=== PATIENT | female | born 1970 | race Caucasian/White ===

== ENCOUNTER 2018-10-20 08:27 | Emergency (ER) | payer OTHER ==
[~2018-10-20 08:27] MED LIST: ALPR-1 PO; ALPR-429 PO; AMLO2.5T75 PO; ESTR-63 TD; IBU800 PO; IBUP-2704 PO; IBUP-56 PO; LOR5 PO; LOSA-51 PO; LOSA25TA57 PO; LOSA50TA80 PO; NITR-1 PO; OLME1TAB54 PO; OMEP10CA40; OMEP40CA48 PO; PER PO; RAN150 PO; SULF-198 PO; VALA100062 PO; VALA500T66 PO; [UNRECOGNIZED DRUG - OTHER] PO
--- NOTE | 2018-10-20 08:45 | ER Report ---
History and Physical Time Seen By MD: 08:45 Hx. of Stated Complaint: PT REPORTS HIGH BP AT HOME AND PAIN IN L SIDE HEAD. HPI/ROS CHIEF COMPLAINT: elevated blood pressure, headache HISTORY OF PRESENT ILLNESS: This is a 48 year old female. She is having elevation of her blood pressure this morning. She took her Losartan 50mg and HCTZ 12.5mg, but blood pressure still very high. Having a headche this morning as well. Left sided headache. She had had elevated blood pressure with headache in the past, but this is very different. Have left sided facial numbness. No facial weakness and no sharp pains in the face. No vision changes or watering eyes. No ringing in ears or loss of hearing. Headache is a dull pressure pain on whole left side of head (frontal, samaritan, and parietal) areas. No trouble swallowing or slurred speech. She has had some numbness in her upper left arm as well, that just went away. Had some tingling in left fingers, all five, earlier today, but gone now. No other numbness or paresthesias noted. No weakness in arms or legs. She is under a little more stress than usual. Just left a job that she has been at for 10 years and starting a new one, so feeling both excited and apprehensive at the same time. Did take a Xanax 0.25mg this morning. Feels congested on the left side of face with these symptoms as well, so did take some over the counter cough medicine to help this. She is unsure exactly what was in the medicine. Denies any balance issues or dizziness. She did have a glass of wine last night. REVIEW OF SYSTEMS: Constitutional: No fever or chills. Eyes: No discharge. ENT: No sore throat. Cardiovascular: No chest pain. No palpitations. Respiratory: No cough. No shortness of breath. Gastrointestinal: No abdominal pain. No nausea or vomiting. No change in bowel movements. Genitourinary: No dysuria. No frequency Musculoskeletal: No back pain. No extremity pain. Skin: No rashes. Neurological: As above. Allergies: Coded Allergies: blue dye (Verified Allergy, Severe, RESTLESSNESS, 05/08/16) flush/ night sweats yellow dye (Verified Allergy, Severe, RESTLESSNESS, 05/08/16) flush/night sweats metoprolol (Verified Allergy, Mild, 05/08/16) Home Meds Active Scripts Losartan Potassium (LOSARTAN POTASSIUM) 25 Mg Tablet, 25 MG PO QHS, #30 TAB 0 Refills Prov:DILLON DE LA O MD 10/20/18 Reported Medications Losartan/Hydrochlorothiazide (LOSARTAN-HCTZ 50-12.5 MG TAB) 1 Each Tablet, 1 EACH PO QDAY 10/20/18 Estradiol (ESTRADIOL 0.1 MG) 1 Each Patch.tdwk, 1 EACH TD Q7D, PATCH.WK 10/20/18 Alprazolam (XANAX) 0.5 Mg Tablet, 1 TAB PO TID, TAB 10/20/18 Valacyclovir Hcl (VALTREX) 500 Mg Tablet, 500 MG PO PRN 05/08/16 Omeprazole (OMEPRAZOLE) 40 Mg Capsule.dr, 40 MG PO HS TAKE ONE TABLET BY MOUTH ONCE A DAY 07/08/13 Discontinued Reported Medications Alprazolam (XANAX) 0.5 Mg Tablet, 1 TAB PO, TAB 05/08/16 Losartan/Hydrochlorothiazide (LOSARTAN-HCTZ 50-12.5 MG TAB) 1 Each Tablet, 1 EACH PO QDAY 05/08/16 Estradiol/Levonorgestrel (CLIMARA PRO PATCH) 1 Each Patch.tdwk, 1 EACH TD QDAY apply to skin weekly 07/11/13 Losartan Potassium (LOSARTAN POTASSIUM) 25 Mg Tablet, 25 MG PO HS 07/08/13 Past Medical/Surgical History Hypertension, GERD, anxiety. Surgeries include hysterectomy, tummy tuck Reviewed Nurses Notes: Yes Hx Smoking: No Hx Alcohol Use: Yes (COUPLE GLASSES OF WINE A NIGHT ) Constitutional Vital Sign - Last 24 Hours 10/20/18 10/20/18 10/20/18 10/20/18 08:30 08:30 08:36 08:42 Temp 97.8 Pulse 73 74 Resp 18 B/P (MAP) 181/122 (141) 181/122 158/110 (126) O2 Delivery Room Air 10/20/18 10/20/18 10/20/18 10/20/18 08:57 09:00 09:12 09:27 Pulse 72 71 72 Resp 16 B/P (MAP) 135/95 (108) Pulse Ox 92 10/20/18 10/20/18 10/20/18 10/20/18 09:32 09:47 10:02 10:17 Pulse 71 66 ? Resp 14 15 Pulse Ox 91 89 10/20/18 10/20/18 10/20/18 10/20/18 10:30 10:32 10:47 11:00 Pulse ? B/P (MAP) ???/??? (1665) 139/82 (101) 10/20/18 10/20/18 10/20/18 10/20/18 11:02 11:17 11:30 11:35 Pulse 70 75 78 B/P (MAP) 135/108 (117) Pulse Ox 93 94 96 10/20/18 10/20/18 10/20/18 12:00 12:05 12:06 Pulse ??? B/P (MAP) ???/??? (4705) 136/100 (112) 146/99 (115) Physical Exam General Appearance: The patient is alert. No acute distress, but a little anxious. Non-toxic in appearance. Eyes: Pupils are equal, round. Reactive to light. No pallor, injection or icterus. Extraocular movements are intact. No nystagmus. ENT: Mucous membranes are moist. Normal oral mucosa. Posterior oropharynx is normal. Normal nasal mucosa. Normal tympanic membranes and canals. Neck: Supple and non tender. No lymphadenopathy. Respiratory: Lungs are clear to auscultation. Cardiovascular: Regular rate and rhythm. No murmurs, gallops or rubs. Normal capillary refill. No edema. No carotid bruits. Normal peripheral pulses. Gastrointestinal: Abdomen is soft and non tender. Nondistended. Normal active bowel sounds. No costovertebral angle tenderness with percussion. Neurological: Alert and oriented x3. Cranial nerve exam with eye exam as noted above. [place] tongue and symmetric palate elevation. Normal motor function in the face. Has decreased sensation in the maxillary distribution of the trigeminal nerve, but normal forehead and mandibular. Normal shoulder shrug. Normal strength and sensation in the arms and legs. Normal reflexes. Normal coordination and gait. Skin: Warm and dry. No rashes. Musculoskeletal: Extremities are nontender. Full range of motion. DIFFERENTIAL DIAGNOSIS: After history and physical exam, differential diagnosis was considered for patient with elevated blood pressure, headache, and facial and left upper extremity numbness this morning, still with facial numbness, but arm numbness resolved. Consider blood pressure as primary cause, versus other neurological problem like bleeding, neurodegenerative disease, craniofacial pain syndrome. Medical Decision Making Data Points Result Diagram: 10/20/18 0837 10/20/18 0837 Laboratory Hematology Test 10/20/18 08:34 10/20/18 08:37 Urine Color Colorless Urine Clarity Clear Urine pH 6.0 pH (4.8-9.5) Urine Specific [place] 1.004 Urine Protein Negative mg/dL (NEGATIVE) Urine Glucose (UA) Negative mg/dL (NEGATIVE) Urine Ketones Negative mg/dL (NEGATIVE) Urine Blood Negative (NEGATIVE) Urine Nitrite Negative (NEGATIVE) Urine Bilirubin Negative (NEGATIVE) Urine Urobilinogen Negative mg/dL (0.2-1.9) Urine Leukocyte Esterase Negative (NEGATIVE) Urine RBC <1 /HPF (0-2/HPF) Urine WBC 1 /HPF (0-5/HPF) Urine Squamous Epithelial Cells Moderate /LPF (</=FEW) Urine Bacteria Few /HPF (NONE-FEW) Urine Mucus None /HPF (NONE-FEW) Red Blood Count 4.79 M/uL (4.17-5.56) Mean Corpuscular Volume 93.3 fL (80.0-96.0) Mean Corpuscular Hemoglobin 31.8 pg (26.0-33.0) Mean Corpuscular Hemoglobin Concent 34.0 g/dL (32.0-36.0) Red Cell Distribution Width 13.0 % (11.5-14.5) Mean Platelet Volume 8.1 fL (7.2-11.1) Neutrophils (%) (Auto) 72.8 % (39.4-72.5) Lymphocytes (%) (Auto) 22.6 % (17.6-49.6) Monocytes (%) (Auto) 3.5 % (4.1-12.4) Eosinophils (%) (Auto) 0.7 % (0.4-6.7) Basophils (%) (Auto) 0.4 % (0.3-1.4) Nucleated RBC Relative Count (auto) 0.1 /100WBC Neutrophils # (Auto) 6.3 K/uL (2.0-7.4) Lymphocytes # (Auto) 1.9 K/uL (1.3-3.6) Monocytes # (Auto) 0.3 K/uL (0.3-1.0) Eosinophils # (Auto) 0.1 K/uL (0.0-0.5) Basophils # (Auto) 0.0 K/uL (0.0-0.1) Nucleated RBC Absolute Count (auto) 0.01 K/uL Erythrocyte Sedimentation Rate 1 mm/HOUR (0-20) Prothrombin Time 12.6 seconds (12.0-14.4) Prothromb Time International Ratio 0.95 Activated Partial Thromboplast Time 29 seconds (23-35) Sodium Level 132 mmol/L (137-145) Potassium Level 3.7 mmol/L (3.5-5.0) Chloride Level 98 mmol/L (98-107) Carbon Dioxide Level 25 mmol/L (22-31) Blood Urea Nitrogen 13 mg/dl (7-18) Creatinine 0.60 mg/dl (0.52-1.04) Glomerular Filtration Rate Calc > 60.0 Random Glucose 105 mg/dl (75-110) Calcium Level 8.8 mg/dl (8.4-10.2) Total Bilirubin 0.6 mg/dl (0.2-1.3) Aspartate Amino Transf (AST/SGOT) 29 U/L (0-35) Alanine Aminotransferase (ALT/SGPT) 24 U/L (0-56) Alkaline Phosphatase 70 U/L (0-126) Total Protein 7.9 g/dl (6.3-8.2) Albumin 4.9 g/dl (3.5-5.0) Chemistry Test 10/20/18 08:34 10/20/18 08:37 Urine Color Colorless Urine Clarity Clear Urine pH 6.0 pH (4.8-9.5) Urine Specific [place] 1.004 Urine Protein Negative mg/dL (NEGATIVE) Urine Glucose (UA) Negative mg/dL (NEGATIVE) Urine Ketones Negative mg/dL (NEGATIVE) Urine Blood Negative (NEGATIVE) Urine Nitrite Negative (NEGATIVE) Urine Bilirubin Negative (NEGATIVE) Urine Urobilinogen Negative mg/dL (0.2-1.9) Urine Leukocyte Esterase Negative (NEGATIVE) Urine RBC <1 /HPF (0-2/HPF) Urine WBC 1 /HPF (0-5/HPF) Urine Squamous Epithelial Cells Moderate /LPF (</=FEW) Urine Bacteria Few /HPF (NONE-FEW) Urine Mucus None /HPF (NONE-FEW) White Blood Count 8.6 k/uL (4.5-11.0) Red Blood Count 4.79 M/uL (4.17-5.56) Hemoglobin 15.2 g/dL (12.0-16.0) Hematocrit 44.7 % (34.0-47.0) Mean Corpuscular Volume 93.3 fL (80.0-96.0) Mean Corpuscular Hemoglobin 31.8 pg (26.0-33.0) Mean Corpuscular Hemoglobin Concent 34.0 g/dL (32.0-36.0) Red Cell Distribution Width 13.0 % (11.5-14.5) Platelet Count 242 K/uL (150-450) Mean Platelet Volume 8.1 fL (7.2-11.1) Neutrophils (%) (Auto) 72.8 % (39.4-72.5) Lymphocytes (%) (Auto) 22.6 % (17.6-49.6) Monocytes (%) (Auto) 3.5 % (4.1-12.4) Eosinophils (%) (Auto) 0.7 % (0.4-6.7) Basophils (%) (Auto) 0.4 % (0.3-1.4) Nucleated RBC Relative Count (auto) 0.1 /100WBC Neutrophils # (Auto) 6.3 K/uL (2.0-7.4) Lymphocytes # (Auto) 1.9 K/uL (1.3-3.6) Monocytes # (Auto) 0.3 K/uL (0.3-1.0) Eosinophils # (Auto) 0.1 K/uL (0.0-0.5) Basophils # (Auto) 0.0 K/uL (0.0-0.1) Nucleated RBC Absolute Count (auto) 0.01 K/uL Erythrocyte Sedimentation Rate 1 mm/HOUR (0-20) Prothrombin Time 12.6 seconds (12.0-14.4) Prothromb Time International Ratio 0.95 Activated Partial Thromboplast Time 29 seconds (23-35) Glomerular Filtration Rate Calc > 60.0 Calcium Level 8.8 mg/dl (8.4-10.2) Total Bilirubin 0.6 mg/dl (0.2-1.3) Aspartate Amino Transf (AST/SGOT) 29 U/L (0-35) Alanine Aminotransferase (ALT/SGPT) 24 U/L (0-56) Alkaline Phosphatase 70 U/L (0-126) Total Protein 7.9 g/dl (6.3-8.2) Albumin 4.9 g/dl (3.5-5.0) Coagulation Test 10/20/18 08:37 Prothrombin Time 12.6 seconds Prothromb Time International Ratio 0.95 Activated Partial Thromboplast Time 29 seconds Urinalysis Test 10/20/18 08:34 Urine Color Colorless Urine Clarity Clear Urine pH 6.0 pH (4.8-9.5) Urine Specific [place] 1.004 Urine Protein Negative mg/dL (NEGATIVE) Urine Glucose (UA) Negative mg/dL (NEGATIVE) Urine Ketones Negative mg/dL (NEGATIVE) Urine Blood Negative (NEGATIVE) Urine Nitrite Negative (NEGATIVE) Urine Bilirubin Negative (NEGATIVE) Urine Urobilinogen Negative mg/dL (0.2-1.9) Urine Leukocyte Esterase Negative (NEGATIVE) Urine RBC <1 /HPF (0-2/HPF) Urine WBC 1 /HPF (0-5/HPF) Urine Squamous Epithelial Cells Moderate /LPF (</=FEW) Urine Bacteria Few /HPF (NONE-FEW) Urine Mucus None /HPF (NONE-FEW) EKG/Imaging Imaging EXAMINATION: MRI brain without IV contrast MRI brain with IV contrast HISTORY: Headache, left facial and arm numbness. COMPARISON: CT head from 05/08/2016. TECHNIQUE: Multi-planar, multi-sequence brain MRI was performed before and after IV gadolinium. CONTRAST: 15 mL of IV Multihance gadolinium. FINDINGS: Brain volume: Normal. Sagittal midline structures: Normal. Ventricles: Normal. Acute ischemic changes: No diffusion restriction present to suggest acute ischemia. Hemorrhage: No acute hemorrhage or hemosiderin staining. Masses/edema: None. Enhancement: No abnormal intracranial enhancement. Valenzuela-white: Negative. White matter: There are greater than 20 scattered small T2/FLAIR hyperintense lesions in the deep white matter bilaterally, the largest in the left frontal lobe. Most of the lesions are subcortical, and the are not oriented perpendicular to the lateral ventricular surface. Vessels: Normal. Extra-axial: None. Calvarium/scalp: Negative. Skull base: Negative. Visualized sinuses/orbits: Negative. Visualized upper neck: Negative. IMPRESSION: 1. No acute infarct, hemorrhage or intracranial mass lesion. 2. Mild nonspecific white matter disease is abnormal for age. Differential considerations include the sequela of chronic migraine headaches, previous inflammation or trauma. A demyelinating disease such as multiple sclerosis could be considered in the correct clinical setting. Report Dictated By: Laine Yu MD at 10/20/2018 11:07 AM ED Course/Re-evaluation Clinical Indication for ER IV: IV Access ED Course Because of abnormal neurologic changes on exam and by history, along with the headache and the blood pressure elevation, we elected to do some blood work as well as an MRI of the brain with and without contrast. Initially elected not to give medicines for blood pressures seem to be coming down to a safe range. It did fluctuate and would occasionally go high again. Once the MRI was completed, blood pressure was still running high so gave clonidine 0.1 mg oral dose. MRI did show some changes that could represent a neurodegenerative disease but there was no bleeding or other acute problem noted. I reviewed these findings with the patient. Recommended that she follow up with neurology for further evaluation. We will restart her on her losartan at 25 mg at bedtime and continue the 50 mg in the morning which seemed to work well for her in the past. She will also continue the hydrochlorothiazide 12.5 mg oral dose in the morning. The clonidine should cover her until this evening when she is able to take the new losartan dose. I have cautioned her to watch for any signs of low blood pressure or feeling lightheaded, and to take her time when getting up and around until she knows the effect of these new medicines. A dose of Toradol 30 mg IV was given for headache. She will continue with ibuprofen or Tylenol or other [id number]-[id number]-[id number] medications for headache. Decision to Disposition Date: Oct 20, 2018 Decision to Disposition Time: 11:44 Depart Departure Latest Vital Signs Vital Signs Date Time Temp Pulse Resp B/P (MAP) Pulse Ox O2 Delivery O2 Flow Rate FiO2 10/20/18 12:06 146/99 (115) 10/20/18 12:05 ??? 10/20/18 11:35 96 10/20/18 09:47 15 10/20/18 08:30 97.8 Room Air Impression: Primary Impression: Headache Additional Impressions: Neuro-degenerative disorders Hypertension Condition: Improved Disposition: HOME OR SELF-CARE Referrals: JAYRO DE LA TORRE MD (PCP) New Scripts Losartan Potassium (LOSARTAN POTASSIUM) 25 Mg Tablet 25 MG PO QHS, #30 TAB 0 Refills Prov: DILLON DE LA O MD 10/20/18 Patient Instructions: Acute Headache (ED), Hypertension (ED) Additional Instructions: For the headache, use Tylenol or ibuprofen or other avrn-giw-bjcikvb medications as needed. For blood pressure, we will go ahead and have you start using losartan 25 mg at bedtime in addition to the normal morning dose and your hydrochlorothiazide. Today we have given you a medicine called Clonidine 0.1mg to keep blood pressure controlled until you take the evening dose of Losartan. Follow-up with neurology for further evaluation given the changes noted on MRI today. Problem Qualifiers Primary Impression: Headache Headache type: unspecified Headache chronicity pattern: acute headache Intractability: not intractable Qualified Codes: R51 - Headache Additional Impressions: Hypertension Hypertension type: unspecified Qualified Codes: I10 - Essential (primary) hypertension DILLON DE LA O MD Oct 20, 2018 08:45
[2018-10-20 09:14] LABS: PLATELET COUNT, AUTOMATED 242 K/uL (150-450)
[2018-10-20] MEDS ORDERED: ALPR-429 PO (09:14)
[2018-10-20] MEDS ORDERED: LOSA-51 PO (09:14)
[2018-10-20] MEDS ORDERED: ESTR1PAT4 TD (09:14)
[2018-10-20 09:19] LABS: INR 0.95
[2018-10-20] MEDS ORDERED: GADOBENATE 529MG/1ML 15ML VIAL IVP ONE (10:11)
[2018-10-20] MEDS ORDERED: ONDANSETRON 4 MG/2 ML VIAL IVP ONE (10:15)
--- NOTE | 2018-10-20 11:23 | RADIOLOGY IMAGING REPORT ---
FACILITY: [facility] PATIENT NAME: Mary Dubose : 1970 MR: [id number] V: [id number] EXAM DATE: ORDERING PHYSICIAN: DILLON DE LA O TECHNOLOGIST: Location: [facility] - [place] Patient: Mary Dubose : 1970 Visit/Account:[id number] Date of Sevice: 10/20/2018 EXAMINATION: MRI brain without IV contrast MRI brain with IV contrast HISTORY: Headache, left facial and arm numbness. COMPARISON: CT head from 05/08/2016. TECHNIQUE: Multi-planar, multi-sequence brain MRI was performed before and after IV gadolinium. CONTRAST: 15 mL of IV Multihance gadolinium. FINDINGS: Brain volume: Normal. Sagittal midline structures: Normal. Ventricles: Normal. Acute ischemic changes: No diffusion restriction present to suggest acute ischemia. Hemorrhage: No acute hemorrhage or hemosiderin staining. Masses/edema: None. Enhancement: No abnormal intracranial enhancement. Valenzuela-white: Negative. White matter: There are greater than 20 scattered small T2/FLAIR hyperintense lesions in the deep wh ite matter bilaterally, the largest in the left frontal lobe. Most of the lesions are subcortical, an d the are not oriented perpendicular to the lateral ventricular surface. Vessels: Normal. Extra-axial: None. Calvarium/scalp: Negative. Skull base: Negative. Visualized sinuses/orbits: Negative. Visualized upper neck: Negative. IMPRESSION: 1. No acute infarct, hemorrhage or intracranial mass lesion. 2. Mild nonspecific white matter disease is abnormal for age. Differential considerations include the sequela of chronic migraine headaches, previous inflammation or trauma. A demyelinating disease such as multiple sclerosis could be considered in the correct clinical setting. Report Dictated By: Laine Yu MD at 10/20/2018 11:07 AM Report E-Signed By: Laine Yu MD at 10/20/2018 11:19 AM [email or web address]
[2018-10-20] MEDS ORDERED: cloNIDine HCL 0.1 MG TAB PO ONE (11:40)
[2018-10-20] MEDS ORDERED: KETOROLAC 30 MG/ML VIAL IVP ONE (11:40)
[2018-10-20] MEDS ORDERED: LOSA25TA57 PO (11:49)
[2018-10-20 12:06] VITALS: BP 146/99
== END 2018-10-20 12:14 | disposition home or self-care (01) ==
LOC: ER 08:30
DX: R51 Headache (principal); G31.9 Degenerative disease of nervous system, unspecified; I10 Essential (primary) hypertension
CPT/HCPCS: 70553; 81001; 85025; 85610; 85651; 85730; 96374; 99284; A9577; J1885; 82040; 82247; 82310; 82374; 82435; 82565; 82947; 84075; 84132; 84155; 84295; 84450; 84460; 84520

== ENCOUNTER → 2018-12-22 | Outpatient (CLI) | payer OTHER ==
[~2018-12-22] MED LIST changes: +ESTR1PAT4 TD
--- NOTE | 2018-12-22 14:46 | RADIOLOGY IMAGING REPORT ---
[place] [facility] [place]IENT NAME: Mary Dubose : 1970 MR: [id number] V: [id number] EXAM DATE: ORDERING PHYSICIAN: ISAIAS ZAMORA TECHNOLOGIST: Location: [facility] Patient: Mary Dubose : 1970 Visit/Account:[id number] Date of Sevice: 12/22/2018 MR SPINE CERVICAL W/O CON COMPARISON: None Additional pertinent history: Neck pain Technique: Multiplanar multisequence cervical spine MRI was performed without gadolinium enhancement. FINDINGS: Vertebral body height and alignment: Negative Vertebral marrow signal: Type one degenerative endplate changes at multiple levels within the cervica l spine. Vertebral bodies: Anteriorly and posteriorly directed osteophytes involving the mid to lower cervical spine. Cervical spinal cord signal, craniocervical junction and visualized posterior fossa: Negative Surrounding soft tissues: Negative Inspection of the disc spaces reveal the following: C1-C2: Negative C2-C3: Negative C3-C4: Posterior broad-based disc protrusion with a superimposed right neural foraminal disc extrusio n. Severe right-sided neural foraminal narrowing. Mild left-sided neural foraminal narrowing. No annetta l stenosis. C4-C5: Posterior broad-based disc protrusion with facet hypertrophic changes. No significant canal or neural foraminal narrowing. C5-C6: Posterior broad-based disc protrusion with a superimposed left neural foraminal disc extrusion . Facet hypertrophic changes. Moderate left-sided neural foraminal narrowing. Mild right-sided neural foraminal narrowing. Mild canal stenosis. C6-C7: Posterior broad-based disc protrusion with facet hypertrophic changes. Moderate left-sided carissa ral foraminal narrowing. Mild right-sided neural foraminal narrowing. Moderate canal stenosis. C7-T1: Negative Impression: 1. Multilevel spondylitic change as discussed above. 2. Findings felt to be potentially most significant at C6-C7 with moderate canal stenosis, moderate l eft-sided neural foraminal narrowing and mild right-sided neural foraminal narrowing. Report Dictated By: Kobi Tim MD at 12/22/2018 2:38 PM Report E-Signed By: Kobi Tim MD at 12/22/2018 2:41 PM [email or web address]
== END ==
LOC: MRI 01:48
PROVIDERS: ATTEND Psychiatry & Neurology Neurology
DX: M47.892 Other spondylosis, cervical region (principal)
CPT/HCPCS: 72141